=== PATIENT | female | born 1995 | race Caucasian/White ===

== ENCOUNTER → 2017-08-11 | Outpatient (CLI) | payer MEDICAID ==
[~2017-08-11] MED LIST: PYRI200T4 PO; SULF1TAB47 PO; Z.0.BCPILL PO
== END ==
LOC: CLAB 14:16
PROVIDERS: ATTEND Obstetrics & Gynecology
DX: Z33.1 Pregnant state, incidental (principal)
CPT/HCPCS: 36415; 86850; 86900; 86901

== ENCOUNTER 2018-01-28 07:45 | Inpatient (IN) | payer MEDICAID ==
[~2018-01-28] VITALS: Ht 162.6 cm; Wt 79.4 kg
[2018-01-28] MEDS ORDERED: LACTATED RINGER'S 1000 ML INJ 1,000 ML IV PRN (09:29)
[2018-01-28] MEDS ORDERED: LIDOCAINE HCL 1% 50 ML VIAL I-DERMAL PRN (09:30)
[2018-01-28] MEDS ORDERED: SODIUM CHLORID 0.9% 500 ML INJ 500 ML IV PRN (09:30)
[2018-01-28] MEDS ORDERED: CITRIC ACID-SODIUM CITRATE LIQ 30 ML UDC PO SCH (09:30)
[2018-01-28] MEDS ORDERED: MINERAL OIL 10 ML VIAL TOPICAL PRN (09:30)
[2018-01-28] MEDS ORDERED: OXYTOCIN 30 UNITS-500ML PREMIX 500 ML IV ONE (09:30)
[2018-01-28] MEDS ORDERED: LIDOCAINE HCL 1% 50 ML VIAL INFIL PRN (09:30)
[2018-01-28] MEDS ORDERED: SODIUM CHLOR 0.9% 1000 ML INJ 1,000 ML IV PRN (09:49)
[2018-01-28] MEDS ORDERED: PENICILLIN G POTASSIUM INJ 5,000,000 UNITS in SODIUM CHLORIDE 0.9% INJ 100 ML IV ONE (10:00)
--- NOTE | 2018-01-28 10:07 | HHI.HP ---
History & Physical H&P HPI Chief Complaint lof Date Seen: January 28, 2018 Time Seen: 09:59 Travel History International Travel<30 Days: No Contact w/Intl Traveler<30Days: No Known Affected Area: No History of Present Illness HPI pt. is a @ 37 2/7 weeks present w/ c/o lof and ctxs. pt. states had gush of fluid earlier in am then had painful ctxs. +FM at present pt. have bedside u /s show cephalic present. cervix 290/-2. Weeks Gestation: 37 Para: 0 : 1 History (Limited) History Past Medical History Medical History: Denies Significant Hx Obstetric History Obstetric History Past Surgical History Surgical History: No Previous Surgery Social History Alcohol Use: No Tobacco Use: No Substance Abuse: No Allergies-Medications Allergies-Medications (Allergen,Severity, Reaction): Coded Allergies: No Known Allergies (Verified Allergy, Unknown, 01/28/18) hydromorphone (Verified Allergy, Unknown, Vomiting, 01/28/18) Home Meds Active Scripts Phenazopyridine Hcl (Pyridium) 200 Mg Tab, 200 MG PO TIDPRN, #6 Prov:NATALIA AL 01/30/13 Trimethoprim/Sulfamethoxazole (Bactrim Ds) Tab, 1 TAB PO BID for 3 Days Prov:NATALIA AL 01/30/13 Reported Medications Miscellaneous ( Control Pills) Tab, 1 TAB PO DAILY 01/30/13 ROS Review of Systems Except as stated in HPI: all other systems reviewed are Neg Physical Exam Physical Exam Narrative GENERAL: Well-nourished, well-developed patient. SKIN: Warm and dry. HEAD: Normocephalic and atraumatic. EYES: No scleral icterus. No injection or drainage. ENT: No nasal drainage noted. Mucous membranes pink. Airway patent. NECK: Supple, trachea midline. No JVD. CARDIOVASCULAR: Regular rate and rhythm without murmurs, gallops, or rubs. RESPIRATORY: Breath sounds equal bilaterally. No accessory muscle use. BREASTS: Bilateral exam showed no masses , no retractions, no nipple discharge. ABDOMEN/GI: Abdomen soft, non-tender, bowel sounds present, no rebound, no guarding Gravid GENITOURINARY: External Genitalia: intact and normal in appearance Dilatation: 2 Effacement: 90 Station: -2 Presentation: cephalic Membranes: ruptured Uterine Contractions: irreg FHT's: Category: 1 Reactive: + Variability: mod EXTREMITIES: No cyanosis or edema. BACK: Nontender without obvious deformity. No CVA tenderness. NEUROLOGICAL: Awake and alert. Motor and sensory grossly within normal limits. Five out of 5 muscle strength in all muscle groups. Normal speech. Data Data Data Vital Signs Reviewed: Yes Orders Orders Ob (2e) Additional Admit Info (01/28/18 08:42) Admit To Inpatient (01/28/18 ) Code Status (01/28/18 09:29) Vital Signs (Adult) .Per protocol (01/28/18:29) Activity Oob Ad Mary (01/28/18:29) Heart (01/28/18:29) Amnioinfusion (01/28/18:29) Urinary Catheter Management .ONCE (01/28/18 09:29) Diet Liquid (01/28/18 Breakfast) Lactated Ringer's 1000 Ml Inj (Lr 1000 M (01/28/18 09:29) Lactated Ringer's 1000 Ml Inj (Lr 1000 M (01/28/18 09:29) Sodium Chlorid 0.9% 500 Ml Inj (Ns 500 M (01/28/18 09:30) Sodium Chlor 0.9% 1000 Ml Inj (Ns 1000 M (01/28/18 09:49) Lidocaine 1% Inj (50 Ml) (Xylocaine 1% I (01/28/18 09:30) Citric Acid-Sodium Citrate Liq (Bicitra (01/28/18 09:30) Fentanyl Inj (Fentanyl Inj) (01/28/18 09:30) Fentanyl Inj (Fentanyl Inj) (01/28/18 09:30) Complete Blood Count With Diff (01/28/18 09:29) Hold Clot (01/28/18 09:29) Abo/Rh Blood Type (01/28/18:29) Urinalysis - C+S If Indicated (01/28/18 09:29) Drug Screen, Random Urine (01/28/18 09:29) Ob/Psych Drug Screen, Urine (01/28/18 09:29) Resp Oxygen Non Rebreathe Mask (01/28/18 ) ^ Epidural / Intrathecal Infus (01/28/18 09:29) Oxytocin 30 Units-500ml Premix (Pitocin (01/28/18 09:30) Lidocaine 1% Inj (50 Ml) (Xylocaine 1% I (01/28/18 09:30) Light Mineral Oil (Muri-Lube Oil) (01/28/18 09:30) Inpatient Certification (01/28/18 ) Penicillin G Potassium Inj (Pfizerpen-G (01/28/18 10:00) Penicillin G Potassium Inj (Pfizerpen-G (01/28/18 14:00) Group B Strep: Positive MDM MDM Medical Record Reviewed: Yes Plan pt. w/ srom and active labor. pt. for admission. fht reassuring. fentanyl vs stadol for analgesia. Diagnosis Diagnosis: Primary Impression: Rupture of membranes with clear amniotic fluid Additional Impression: 37 weeks gestation of Alexandru Deluna Jr., MD January 28, 2018 10:07
[2018-01-28 10:29] LABS: AUTOMATED NEUTROPHIL # 9.3 TH/MM3 (1.8-7.7); BASOPHIL % 0.1 % (0.0-2.0); EOSINOPHIL % 0.1 % (0.0-4.0); HEMATOCRIT 35.6 % (35.0-46.0); HEMOGLOBIN 12.5 GM/DL (11.6-15.3); LYMPH % 10.8 % (9.0-44.0); LYMPHOCYTE # 1.2 TH/MM3 (1.0-4.8); MEAN CELL VOLUME 85.3 FL (80.0-100.0); MEAN CORPUSCULAR HGB CONC 35.2 % (32.0-36.0); MEAN PLATELET VOLUME 9.8 FL (7.0-11.0); MONO % 6.2 % (0.0-8.0); MONOCYTE # 0.7 TH/MM3 (0-0.9); NEUT % 82.8 % (16.0-70.0); PLATELET COUNT 195 TH/MM3 (150-450); RED BLOOD COUNT 4.17 MIL/MM3 (4.00-5.30); RED CELL DISTRIBUTION WIDTH 12.8 % (11.6-17.2); WHITE BLOOD COUNT 11.3 TH/MM3 (4.0-11.0)
[2018-01-28 11:03] LABS: BACTERIA, URINE RARE /hpf; BILIRUBIN, URINE NEG (NEG); BLOOD, URINE SMALL (NEG); GLUCOSE,URINE NEG (NEG); KETONE, URINE NEG (NEG); MUCUS URINE FEW /lpf (OCC); NITRITE,URINE NEG (NEG); RENAL EPITHELIAL CELLS <1 /hpf; SQUAMOUS EPITHELIAL CELL URINE 11 /hpf (0-5); URINE COLOR YELLOW (YELLW/STRAW); URINE LEUKOCYTE ESTERASE SMALL (NEG)
[2018-01-28] MEDS ORDERED: OXYTOCIN 30 UNITS/NS 500ML PREMIX IV PRN (12:00)
[2018-01-28] MEDS: LACTATED RINGER'S 1000 ML INJ 1,000 ML IV SCH (12:57)
[2018-01-28] MEDS ORDERED: PENICILLIN G POTASSIUM INJ 2,500,000 UNITS in SODIUM CHLORIDE 0.9% INJ 100 ML IV SCH (14:00)
[2018-01-28] MEDS ORDERED: fentaNYL 2MCG-BUPIV 0.125% INJ 150 ML EPIDURAL ONE (14:06)
[2018-01-28] MEDS ORDERED: ePHEDrine/NS 25 MG/5 ML SYRINGE ONE (14:07)
[2018-01-28] MEDS ORDERED: LIDOCAINE 1.5%/EPINEPHrine 1:200,000 PF 5 ML AMP ONE (14:13)
[2018-01-28] MEDS ORDERED: LIDOCAINE HCL 1% PF 5 ML AMPULE ONE (14:14)
--- NOTE | 2018-01-28 15:27 | PD.OB.DELI ---
Weeks gestation: 37 Pt started active labor?: Yes Active labor start date: January 28, 2018 Active labor start time: 08:00 Medical induction of labor?: Yes Artificial rupture of membrane: No Anesthesia: Epidural Episiotomy: None Vaginal Delivery: Normal Presentation: Occiput anterior Nuchal Cord: x1 Delayed cord clamping (45 sec): Yes : Male Delivery date: January 28, 2018 Delivery time: 15:27 One Minute : 9 Five Minute : 9 Weight: 6 8 Placenta: Spontaneous delivery Laceration: No lacerations Estimated blood loss: 200 Stella Anne MD January 28, 2018 15:27
[2018-01-28] MEDS ORDERED: OXYTOCIN 30 UNITS-500ML PREMIX 500 ML IV SCH (15:30)
[2018-01-28] MEDS ORDERED: BENZOCAINE 20% TOPICAL SPRAY 60 ML CAN TOPICAL PRN (15:30)
[2018-01-28] MEDS ORDERED: ZOLPIDEM TARTRATE 5 MG TAB PO PRN (15:30)
[2018-01-28] MEDS ORDERED: DOCUSATE SODIUM 50 MG/SENNA 8.6 MG TAB PO PRN (15:30)
[2018-01-28] MEDS ORDERED: ONDANSETRON ODT 4 MG TAB PO PRN (15:30)
[2018-01-28] MEDS ORDERED: ACETAMINOPHEN 325 MG TAB PO PRN (15:30)
[2018-01-28] MEDS ORDERED: ALUMINUM/MAGNESIUM/SIMETH 30 ML CUP PO PRN (15:30)
[2018-01-28] MEDS ORDERED: SODIUM CHLORIDE 0.9% FLUSH 10 ML FLUSH IV FLUSH PRN (15:30)
[2018-01-28] MEDS ORDERED: WITCH HAZEL 50%/GLYCERIN 12.5% 40 PAD JAR TOPICAL PRN (15:30)
[2018-01-28] MEDS ORDERED: MEASLES, MUMPS, RUBELLA VACCINE 0.5 ML VIAL SQ ONE (16:00)
[2018-01-28] MEDS ORDERED: DIPHTH/TETANUS/ACEL PERTUSSIS (BOOSTER) 0.5 ML VIAL/PFS IM ONE (16:00)
[2018-01-28] MEDS ORDERED: DO NOT ADMINISTER ANTICOAGULANTS PRN (17:15)
[2018-01-28] MEDS ORDERED: ePHEDrine/NS 25 MG/5 ML SYRINGE IV PUSH PRN (17:15)
[2018-01-28] MEDS ORDERED: fentaNYL 2MCG-BUPIV 0.125% 150 ML EPIDURAL PRN (17:15)
[2018-01-28] MEDS ORDERED: NO SYSTEM NARCOTICS PRN (17:15)
[2018-01-28] MEDS: IBUPROFEN 800 MG TAB PO PRN (20:23)
[2018-01-29] MEDS: IBUPROFEN 800 MG TAB PO PRN ×3 (04:47→22:25)
--- NOTE | 2018-01-29 07:50 | HHI.OB ---
Subjective Post Day: 1 Remarks no complaints, doing well, breast & bottle feeding Objective Objective Remarks GENERAL: Well-nourished, well-developed patient. CARDIOVASCULAR: Regular rate and rhythm without murmurs, gallops, or rubs. RESPIRATORY: Breath sounds equal bilaterally. No accessory muscle use. ABDOMEN/GI: Abdomen soft, non-tender. Fundus: Firm, non-tender at umbilicus. GENITOURINARY: Light to moderate bleeding. EXTREMITIES: No cyanosis or edema, non-tender, without signs of DVT. Medications and IVs Current Medications Medications (Trade) Dose Ordered Sig/Nash Route Start Time Stop Time Status Last Admin Lactated Ringer's 1,000 ml @ 125 mls/hr Q8H IV 01/28/18 09:29 01/28/18 12:57 Lactated Ringer's 1,000 ml @ 3,000 mls/hr Q20M PRN IV 01/28/18 09:29 Sodium Chloride 500 ml @ 1,000 mls/hr ONCE PRN IV 01/28/18 09:30 Sodium Chloride 1,000 ml @ 100 mls/hr Q10H PRN IV 01/28/18 09:49 (Xylocaine 1% Inj (50 ml)) 0.1 ml UNSCH X1 PRN I-DERMAL 01/28/18 09:30 01/31/18 09:29 (Bicitra Liq) 30 ml LAUNCHMAN PO 01/28/18 09:30 02/01/18 09:29 (Xylocaine 1% Inj (50 ml)) 10 ml UNSCH X1 PRN INFIL 01/28/18 09:30 01/30/18 09:29 (Muri-Lube Oil) 10 ml UNSCH PRN TOPICAL 01/28/18 09:30 Oxytocin 500 ml @ 0 mls/hr TITRATE PRN IV 01/28/18 12:00 01/28/18 12:03 (NS Flush) 2 ml BID IV FLUSH 01/28/18 21:00 (NS Flush) 2 ml UNSCH PRN IV FLUSH 01/28/18 15:30 (Tylenol) 650 mg Q4H PRN PO 01/28/18 15:30 (Motrin) 800 mg Q8H PRN PO 01/28/18 15:30 01/29/18 04:47 (Americaine 20% Top Spr) 1 spray Q4H PRN TOPICAL 01/28/18 15:30 (Tucks Pads) 1 applic QID PRN TOPICAL 01/28/18 15:30 (Briana-Colace) 2 tab Q12H PRN PO 01/28/18 15:30 (Ambien) 5 mg HS PRN PO 01/28/18 15:30 (Mag-Al Plus Susp Liq) 15 ml Q8H PRN PO 01/28/18 15:30 (Zofran Odt) 4 mg Q6H PRN PO 01/28/18 15:30 ([facility] Nursing Information) No systemic narcotics to be given except... UNSCH PRN .XX 01/28/18 17:15 01/29/18 17:14 ([facility] Nursing Information) DO NOT ADMINISTER ANY ANTICOAGUL... UNSCH PRN .XX 01/28/18 17:15 01/29/18 17:14 Fentanyl/ Bupivacaine/ Sodium Chlor 150 ml @ 0 mls/hr TITRATE PRN EPIDURAL 01/28/18 17:15 (ePHEDrine/NS 25 MG/5 ML SYR) 10 mg UNSCH PRN IV PUSH 01/28/18 17:15 01/29/18 17:14 Assessment/Plan Problem List: (1) (spontaneous vaginal delivery) ICD Codes: O80 - Encounter for full-term uncomplicated delivery Status: Acute Assessment and Plan PPD#1 - routine care, support , anticipate d/c to home tmrw 01/30/18 Discharge Planning routine Pearl Robison MD January 29, 2018 07:50
[2018-01-29] MEDS: SODIUM CHLORIDE 0.9% FLUSH 10 ML FLUSH IV FLUSH SCH ×2 (08:15→20:48)
[2018-01-29] MEDS: LACTATED RINGER'S 1000 ML INJ 1,000 ML IV SCH ×2 (09:29→16:35)
[2018-01-29 15:15] VITALS: RESP 16
[2018-01-30] MEDS: LACTATED RINGER'S 1000 ML INJ 1,000 ML IV SCH (01:29)
--- NOTE | 2018-01-30 09:10 | HHI.OB ---
Subjective Post Day: 2 Remarks doing well, breast and bottlefeeding Objective Vitals/I&O Vital Signs Date Time Temp Pulse Resp B/P (MAP) Pulse Ox O2 Delivery O2 Flow Rate FiO2 01/29/18 15:15 16 Objective Remarks GENERAL: Well-nourished, well-developed patient. CARDIOVASCULAR: Regular rate and rhythm without murmurs, gallops, or rubs. RESPIRATORY: Breath sounds equal bilaterally. No accessory muscle use. ABDOMEN/GI: Abdomen soft, non-tender. Fundus: Firm, non-tender at umbilicus. GENITOURINARY: Light to moderate bleeding. EXTREMITIES: No cyanosis or edema, non-tender, without signs of DVT. Medications and IVs Current Medications Medications (Trade) Dose Ordered Sig/Nash Route Start Time Stop Time Status Last Admin Lactated Ringer's 1,000 ml @ 125 mls/hr Q8H IV 01/28/18 09:29 01/28/18 12:57 Lactated Ringer's 1,000 ml @ 3,000 mls/hr Q20M PRN IV 01/28/18 09:29 Sodium Chloride 500 ml @ 1,000 mls/hr ONCE PRN IV 01/28/18 09:30 Sodium Chloride 1,000 ml @ 100 mls/hr Q10H PRN IV 01/28/18 09:49 (Xylocaine 1% Inj (50 ml)) 0.1 ml UNSCH X1 PRN I-DERMAL 01/28/18 09:30 01/31/18 09:29 (Bicitra Liq) 30 ml SPRUE KNOCKER PO 01/28/18 09:30 02/01/18 09:29 (Xylocaine 1% Inj (50 ml)) 10 ml UNSCH X1 PRN INFIL 01/28/18 09:30 01/30/18 09:29 (Muri-Lube Oil) 10 ml UNSCH PRN TOPICAL 01/28/18 09:30 Oxytocin 500 ml @ 0 mls/hr TITRATE PRN IV 01/28/18 12:00 01/28/18 12:03 (NS Flush) 2 ml BID IV FLUSH 01/28/18 21:00 (NS Flush) 2 ml UNSCH PRN IV FLUSH 01/28/18 15:30 (Tylenol) 650 mg Q4H PRN PO 01/28/18 15:30 (Motrin) 800 mg Q8H PRN PO 01/28/18 15:30 01/29/18 22:25 (Americaine 20% Top Spr) 1 spray Q4H PRN TOPICAL 01/28/18 15:30 (Tucks Pads) 1 applic QID PRN TOPICAL 01/28/18 15:30 (Briana-Colace) 2 tab Q12H PRN PO 01/28/18 15:30 (Ambien) 5 mg HS PRN PO 01/28/18 15:30 (Mag-Al Plus Susp Liq) 15 ml Q8H PRN PO 01/28/18 15:30 (Zofran Odt) 4 mg Q6H PRN PO 01/28/18 15:30 Fentanyl/ Bupivacaine/ Sodium Chlor 150 ml @ 0 mls/hr TITRATE PRN EPIDURAL 01/28/18 17:15 Assessment/Plan Problem List: (1) (spontaneous vaginal delivery) ICD Codes: O80 - Encounter for full-term uncomplicated delivery Status: Acute Assessment and Plan PPD#2 - routine care, support , anticipate d/c to home 01/30/18 Discharge Planning routine Attending Attestation pt seen by Marlen Post MD January 30, 2018 09:10
[2018-01-30] MEDS ORDERED: IBUP1TAB7 PO (09:12)
--- NOTE | 2018-01-30 09:12 | HHI.DCPOC ---
Discharge Care Plan Your Health Problems Are: Pelvic pain Report Symptoms to Your Doctor -Temperature above 100.5 degrees -Redness, of incision or excessive or foul smelling drainage -Unusual pain or calf pain -Increased vaginal bleeding -Painful or difficulty urinating -Feelings of extreme sadness or anxiety after 2 weeks Goals to Promote Your Health * To prevent worsening of your condition and complications * To maintain your health at the optimal level Directions to Meet Your Goals Take your medications as prescribed Follow your dietary instruction Follow activity as directed Ensure plenty of rest for recovery Drink fluids for hydration Keep your appointments as scheduled Take your immunizations and boosters as scheduled If your symptoms worsen call your PCP, if no PCP go to Urgent Care Center or Emergency Room Smoking is Dangerous to Your Health. Avoid second hand smoke Call the 24-hour crisis hotline for domestic abuse at Marlen Fam MD January 30, 2018 09:12
[2018-01-30] MEDS: IBUPROFEN 800 MG TAB PO PRN (09:29)
== END 2018-01-30 11:20 | disposition home or self-care (01) | DRG 775 ==
LOC: HOBED 07:45 → H2EB 08:50 → H1EA 17:09
PROVIDERS: ADMIT Obstetrics & Gynecology; ATTEND Obstetrics & Gynecology
PROC: 10E0XZZ Delivery of Products of Conception, External Approach (ICD-10-PCS; principal; 2018-01-28)
PROC: 00HU33Z Insertion of Infusion Device into Spinal Canal, Percutaneous Approach (ICD-10-PCS; 2018-01-28)
PROC: 3E0R3BZ Introduction of Anesthetic Agent into Spinal Canal, Percutaneous Approach (ICD-10-PCS; 2018-01-28)
DX: O69.81X0 Labor and delivery complicated by cord around neck, without compression, not applicable or unspecified (principal); Z37.0 Single live birth; Z3A.37 37 weeks gestation of pregnancy
CPT/HCPCS: 59025; 76815; 80307; 81001; 84112; 85025; 86900; 86901; J2540; J2590; J3010; J7120